=== PATIENT | female | born 1985 | race Caucasian/White ===

== ENCOUNTER 2018-03-30 14:56 | Inpatient (IN) | payer OTHER ==
[~2018-03-30] VITALS: Ht 162.6 cm; Wt 99.3 kg
[~2018-03-30 14:56] MED LIST: ALPR1TAB3 PO; BUPR150T3 PO; BUSP10TA PO; CYCL10TA PO; DETROL PO; ESTR1TAB PO; IBUP-1022 PO; KLON0.5T PO; LABE10TAB PO; LAMO25TA4 PO; LATU1TAB PO; LISI10TA4 PO; LORA-243 PO; NAPR-885 PO; NAPR375T PO; NEUR100C PO; PRIL20CA9 PO; ZOLP10TA2 PO; ZYRT10CA5 PO; [UNRECOGNIZED DRUG - OTHER] PO; flexeril PO
[2018-03-30 15:32] LABS: HEMATOCRIT 45.6 % (36.0-47.0); HEMOGLOBIN 15.2 g/dl (12.0-15.5); MEAN CORPUSCULAR HEMOGLOBIN 30.5 pg (27.0-33.0); MEAN CORPUSCULAR HGB CONC 33.3 g/dl (32.0-36.5); MEAN CORPUSCULAR VOLUME 91.6 fl (80.0-96.0); PLATELET COUNT, AUTOMATED 328 10^3/uL (150-450); RED BLOOD COUNT 4.98 10^6/uL (4.00-5.40); WHITE BLOOD COUNT 13.2 10^3/uL (4.0-10.0)
[2018-03-30 15:47] LABS: AMPHETAMINES LEVEL URINE NEGATIVE (NEGATIVE); BARBITURATES URINE NEGATIVE (NEGATIVE); BENZODIAZEPINES URINE NEGATIVE (NEGATIVE); CANNABINOIDS URINE POSITIVE (NEGATIVE); COCAINE METABOLITE URINE NEGATIVE (NEGATIVE); METHADONE URINE NEGATIVE (NEGATIVE); OPIATES URINE NEGATIVE (NEGATIVE); PHENCYCLIDINE URINE NEGATIVE (NEGATIVE)
[2018-03-30 16:14] LABS: ACETAMINOPHEN LEVEL < 2.0 UG/ML (10.0-30.0); ALBUMIN 4.7 GM/DL (3.2-5.2); ALT/SGPT 18 U/L (12-78); BILIRUBIN,DIRECT 0.2 MG/DL (0.0-0.2); BILIRUBIN,TOTAL 0.5 MG/DL (0.2-1.0); BLOOD UREA NITROGEN 7 MG/DL (7-18); CALCIUM LEVEL 9.5 MG/DL (8.5-10.1); CARBON DIOXIDE LEVEL 24 MEQ/L (21-32); CHLORIDE LEVEL 107 MEQ/L (98-107); CREATININE FOR GFR 0.86 MG/DL (0.55-1.30); ETHYL ALCOHOL (ETHANOL) < 0.003 % (0.000-0.010); GLOMERULAR FILTRATION RATE > 60.0 (>60); GLUCOSE, FASTING 115 MG/DL (70-100); POTASSIUM SERUM 4.1 MEQ/L (3.5-5.1); SALICYLATE LEVEL 4.3 MG/DL (5.0-30.0); SODIUM LEVEL 139 MEQ/L (136-145); THYROID STIMULATING HORMONE 0.804 uIU/ML (0.358-3.740); TOTAL PROTEIN 7.9 GM/DL (6.4-8.2)
[2018-03-30] MEDS ORDERED: ACETAMINOPHEN TAB 650MG DOSE (2X325MG) PO ONE (16:15)
[2018-03-30] MEDS ORDERED: LABETALOL 100 MG TAB PO ONE (16:45)
[2018-03-30 16:47] LABS: HCG, SERUM QUALITATIVE NEGATIVE (NEGATIVE)
--- NOTE | 2018-03-30 17:19 | REP ---
CHEST PA AND LATERAL: 03/30/2018. Clinical history: Fever. Findings: No prior study. The two-view show the lungs well inflated. CP angles are sharply defined. There is no effusion, lateral pleural thickening, apical scarring or any acute infiltrate. Heart, mediastinal and hilar contours normal. Aorta and airway intact. Bony thorax unremarkable. No free air under the diaphragm. Surgical clips in the upper abdomen seen on the lateral view. Impression: 1. No infiltrate, effusion, cardiomegaly or other significant finding. Electronically Signed by Deric Donis MD 03/30/2018 05:56 P
[2018-03-30 17:45] LABS: INFLUENZA A AMPLIFICATION NEGATIVE (NEGATIVE); INFLUENZA B AMPLIFICATION NEGATIVE (NEGATIVE)
[2018-03-30] MEDS ORDERED: LORazepam 2 MG TAB PO ONE (18:30)
[2018-03-30] MEDS ORDERED: CITA-229 PO (19:49)
[2018-03-30] MEDS ORDERED: ALPR1TAB3 PO (19:49)
[2018-03-30] MEDS ORDERED: VYVA70CA3 PO (19:49)
[2018-03-30] MEDS ORDERED: PANT40TA3 PO (19:49)
[2018-03-30] MEDS ORDERED: TEMA30CA PO (19:49)
[2018-03-30] MEDS ORDERED: SERT25TA PO (19:51)
[2018-03-30] MEDS ORDERED: LAMO25CH6 PO (19:51)
[2018-03-30] MEDS ORDERED: DOXE50CA PO (19:51)
[2018-03-30] MEDS ORDERED: VENTAER INH (19:51)
[2018-03-30] MEDS ORDERED: PHENobarbital 30 MG TAB PO ONE (20:00)
[2018-03-30] MEDS ORDERED: IBUPROFEN 800 MG TAB PO ONE (20:00)
[2018-03-30] MEDS ORDERED: LAMO25TA4 PO (20:08)
[2018-03-30] MEDS ORDERED: TIZA4CAP6 PO (20:08)
[2018-03-30] MEDS ORDERED: FLUO20CA8 PO (20:08)
[2018-03-30] MEDS ORDERED: VRAY6CAP PO (20:08)
[2018-03-30] MEDS ORDERED: ESTR2TAB2 PO (20:08)
[2018-03-30] MEDS ORDERED: VRAY3CAP PO (20:09)
[2018-03-30] MEDS ORDERED: PATIENT COMMENTS (20:12)
[2018-03-30] MEDS ORDERED: MAALOX 30 ML SUSP *UDC PO PRN (21:45)
[2018-03-30] MEDS ORDERED: traZODone 50 MG TAB PO PRN (21:45)
[2018-03-30] MEDS ORDERED: MOM 30ML SUSPENSION UDC PO PRN (21:45)
[2018-03-30] MEDS ORDERED: chlorproMAZINE INJ 50MG/2ML AMP (J3230) IM ONE (22:30)
[2018-03-31 02:00] VITALS: BP 136/88
[2018-03-31] MEDS ORDERED: OLANZapine ORAL DISINTEGRATING TAB 5MG PO PRN (03:45)
[2018-03-31] MEDS ORDERED: ALBUTEROL 90 MCG/ACT 8GM HFA INHALER INH PRN (03:45)
[2018-03-31 06:00] VITALS: BP 107/53
[2018-03-31] MEDS: PANTOPRAZOLE 40MG TAB (PROTONIX) PO SCH ×2 (09:34→21:58)
[2018-03-31] MEDS: CETIRIZINE (ZyrTEC) 10 MG TAB PO SCH (09:34)
[2018-03-31] MEDS: ACETAMINOPHEN TAB 650MG DOSE (2X325MG) PO PRN (09:41)
[2018-03-31] MEDS: ESTRADIOL 1 MG TAB PO SCH (14:20)
[2018-03-31 18:00] VITALS: BP 121/64
--- NOTE | 2018-03-31 19:07 | NUR ---
Admit note dictated
[2018-03-31] MEDS ORDERED: ARIPiprazole 2 MG TAB PO SCH (21:00)
[2018-03-31] MEDS: LABETALOL 100 MG TAB PO SCH (21:59)
[2018-04-01 06:00] VITALS: BP 109/54
[2018-04-01] MEDS: CETIRIZINE (ZyrTEC) 10 MG TAB PO SCH (09:04)
[2018-04-01] MEDS: ESTRADIOL 1 MG TAB PO SCH (09:04)
[2018-04-01] MEDS: PANTOPRAZOLE 40MG TAB (PROTONIX) PO SCH ×2 (09:04→21:28)
[2018-04-01] MEDS: ACETAMINOPHEN TAB 650MG DOSE (2X325MG) PO PRN (09:04)
[2018-04-01 18:00] VITALS: BP 106/60
[2018-04-01 21:28] VITALS: BP 127/80
[2018-04-01] MEDS: LABETALOL 100 MG TAB PO SCH (21:28)
--- NOTE | 2018-04-01 21:32 | MHHPE ---
DATE OF ADMISSION: 03/30/2018 CHIEF COMPLAINT: Feels okay. SUBJECTIVE: She is 32 years old. She lives next to her parents, who have temporary custody of her three children. She had a child who 3 years ago; he was 6 at the time, and the child of a seizure. Patient says things changed after that. She has had inpatient hospitalizations; most recent one was at [facility] in [place]. Says was there last week. [facility]) in [place]. She says she sees a therapist as well as a psychiatrist. The patient was last admitted here about 2 years ago, December 2015, seen by Dr. Munoz, whose discharge summary is reviewed. She was thought to have depression, was suicidal, and also was experiencing grief regarding the loss of her son, which was in June 2015. The patient says that over the last month, she lived somewhat like a "hermit;" this is her description. Says tended to live in her room, would not get out, would only get out for food and water, would make something herself and then get back into the room. Says that went on from around [place] onwards. Says she was thinking of her son, whose birthday is in February. Says began feeling better; at some point, she went to [place], flew there, and drove off with a friend, went to [place] on the way, and returned. Says that went well and that she was about a week away from the area. Says had lately been doing okay and that, in fact, she had been seeing her parents regularly and a couple of friends, one of whom is Randal, whom she is very close to, and Seb, who sometimes stay at her place, per the patient. She says she was a bit frustrated a couple of days ago and that there had been some disagreement. She did not go into details, but then she texted Randal that she felt frustrated and that she wished to join her son if her wishes did not turn laster. The emergency room (ER) record says the wish was to move to [place]. She says she had expected Randal to call her back and ask about her; he apparently did not. He informed her parents. The following day, which was yesterday, she went to see her outpatient clinician. Says things were okay, was asked many questions. Says that went well and that her clinician was restarting Vraylar. She had been on it in the recent past but not taken it for about a month. She acknowledges she did not inform the clinician that she had sent the text to her friend the previous day. Says in the evening, had gone to her parents' place, picked up the keys to her place, was at her place. Says someone came to distract her and then the police came. Says she was not pleased with that but cooperated in coming to the emergency room. She feels that her friend and parents overreacted. Initially, she had denied that she had sent a message, but the patient and family services, via the police, were able to (cut off); and when told that she was going to be admitted to the hospital, she became very agitated and was restrained, including chemically. She says she did that as she was upset and does not think that she was treated well. Says there are times, she acknowledges, that if she is treated not well, will behave in a "psychotic" manner; these are her words. Says has no intentions of taking her life and that she did not have any either. She says the outpatient clinician has been making many changes to her medicines, which has been evident in the rather confusing medication list; we tried to reconcile the medicines with the pharmacy outpatient. She says there are periods where she feels quite happy, possibly euphoric, that last for about 4 days or so, usually followed by a crash. Says is tired despite feeling good. The need for sleep diminishes, but denies any spending sprees or other symptoms of hypomania. PAST PSYCHIATRIC HISTORY: As indicated above, has had inpatient hospitalizations, most recently at [facility] in [place]. Denies any drug use or any alcohol use. It should be noted urine toxicology is positive for cannabinoids. SOCIAL HISTORY: Please refer to previous summaries. She had a child who just over 2 years ago secondary to a seizure. She has three other children. Says generally gets along with her parents, who live next door. MENTAL STATUS EXAMINATION: She is neat. She is cooperative. She is seen in the presence of staff. She is coherent. Speech spontaneous, goal directed. Affect reactive, broad. Denies any suicidal thoughts or intents. No homicidal ideas or intents. No evidence of any psychosis. Cognition grossly intact. Judgment and insight are compromised. Intellect is average. VITAL SIGNS: Blood pressure 107/53, pulse 74, temperature 97.8. INVESTIGATIONS: Shows urine toxicology positive for cannabinoids. Basic metabolic panel essentially within normal limits except for fasting glucose 115. Complete blood count essentially within normal limits except for white cell count of 13.2. ASSESSMENT: 1. Other specified bipolar and related disorders. 2. Rule out bipolar type 2 disorder. 3. Rule out major depressive disorder, recurrent. 4. Son's 2 years ago. 5. Limited social supports. Has had depressive periods; possibly has had periods indicative of hypomania, though unclear if she meets full criteria for it. Has had many medication changes, and this may impact the confusion further. PLAN: She is admitted to the inpatient psychiatry unit, placed on relevant precautions. I would suggest obtaining collateral information, including from her inpatient stay at [facility], to help with diagnosis. Meanwhile, we will look at starting her on a mood stabilizer, such as Abilify, to help with mood stability and avoid using an antidepressant. I am hesitant prescribing her Vyvanse, which she says she takes regularly, given mood fluctuations. She will receive a medicine consult if indicated. She will be asked to participate in activities in the unit as tolerated. She will be discharged with followup once she is stable. I would anticipate a 5-7 day stay. My assessment and recommendations are discussed with her at length. The assessment took 45 minutes. Edited: alberto 04/04/2018 2300
[2018-04-01] MEDS: CYCLOBENZAPRINE 10 MG TAB PO SCH (22:23)
[2018-04-02 06:24] VITALS: BP 128/65
[2018-04-02] MEDS: FLUCONAZOLE 50MG TABLET PO SCH (09:12)
[2018-04-02] MEDS: ESTRADIOL 1 MG TAB PO SCH (09:12)
[2018-04-02] MEDS: CETIRIZINE (ZyrTEC) 10 MG TAB PO SCH (09:12)
[2018-04-02] MEDS: PANTOPRAZOLE 40MG TAB (PROTONIX) PO SCH ×2 (09:12→21:00)
--- NOTE | 2018-04-02 11:41 | MHIPNPDOC ---
[facility] Progress Note Progress Note DATE OF SERVICE: 04/02/18 HISTORY: She is 32 years old. She lives next to her parents, who have temporary custody of her three children. She had a child who 3 years ago, he was 6 at the time, and the child of a seizure. The patient says that things changed after that. She had inpatient hospitalizations, most recent one was at [facility] in [place], says was there last week, is seen at [facility] ([facility]) in [place]. She says that she sees a therapist, as well as a psychiatrist. The patient was last admitted here about 2 years ago, December 2015, was seen by Dr. Munoz, whose discharge summary is reviewed, she was thought to have depression, was suicidal, and also was experiencing grief regarding the loss of her son, which was in June 2015. The patient says that over the last month she lived somewhat like a "hermit," this is her description. Says tended to live in her room, would not get out, would only get out for food and water, would make something herself and then get back into her room. Says this went on from around [place] onwards, says she was thinking of her son, whose birthday was in February. Says began feeling better and at some point she went to [place], flew there, and drove off with a friend to [place] on the way and returned. Said that went well and she was about a week away from the area. Says had lately been doing okay and that in fact she had been seeing her parents regularly and a couple of friends, one of whom is Randal, whom she is very close to, and Seb, who sometimes stay at her place, per the patient. She says that she was a bit frustrated a couple of days ago and that there had been some disagreement. She did not go into details, and then she texted Randal that she felt frustrated and that she wished to join her son if her wishes did not garment turner. The emergency room record says the wish to move to [place]. She says that she had expected Randal to call her back and ask about her, he apparently did not, he informed her parents. The following day, which was yesterday, she went to see her outpatient clinician, says things were okay, was asked many questions. Says that went well, and that her clinician was restarting Vraylar, she had been on it in the recent past but was not taking it for about a month. She acknowledges that she did not inform the clinician that she had sent the text to her friend the previous day. Says in the evening had gone to her parents' place, picked up the keys to her place, was at her place, says someone came to distract her and then the police came. She says that she was not pleased with that but cooperated in coming to the emergency room. She feels that her friend and parents overreacted. Initially, she had denied that she had sent a message, but patient and family services ([facility]), via the police , and when told that she was going to be admitted to the hospital she became very agitated and was restrained, including chemically. She says that she did that as she was upset, does not think that she was treated well. Says that there are times, she acknowledges, that if she is treated not well that she will behave in a "psychotic manner," these are her words. Says had no intentions of taking her life, and that she did not have any either. She says that the outpatient clinician has been making many changes to her medicines, which has been evident in the rather confusing medication list, we tried to reconcile the medications with the pharmacy outpatient. She says that there are periods where she feels quite happy, possibly euphoric, it lasts for about 4 days or so, followed by a crash. Says is tired despite feeling good. The need for sleep diminishes, but denies any spending sprees or other symptoms of hypomania. VITAL SIGNS: See below. NEW TEST RESULTS: See below. CURRENT MEDICATIONS: See below. MENTAL STATUS EXAMINATION: She is neat. She is cooperative. She is seen in office. She is coherent. Speech is spontaneous and goal directed. Affect is slightly irritable and low range. Endorses anxiety occasionally due to claustrophobia and tiny hanks. Denies any suicidal thoughts or intents. No homicidal ideas or intents. No evidence of any psychosis. Cognition is grossly intact. Judgment and insight are fair. Intellect is average. DIAGNOSES: 1. Other specified bipolar and related disorders. 2. Rule out bipolar type 2 disorder. 3. Rule out major depressive disorder, recurrent. ASSESSMENT:Pt seen and states she's doing "ok." States she's here b/c her family took her text message that "she wanted to be with her son." as a suicidal threat which she denies stating she really ment that she just wanted some one to talk to. States "no one could pay may enough money to kill myself b/c I'd just being punishing 3 little people" her kids. States she's talking to staff as she won't go to groups b/c she's claustrophobic and hanks is too small. States nursing staff is supportive and available to talk to. Pt states she's tolerating her medications well and feels they're beneficial. Hopeful to go home soon. She denies depression, anxiety, insomnia, SI/HI, hallucinations, delusions. Pt feels safe here. MANAGEMENT PLAN: continue current plan. Medications: Aripiprazole 5 mg QHS ZyPREXA ZYDIS 5 mg Q4HP PRN PO ANXIETY/AGITATION Trazodone 50 mg QHSP PRN PO INSOMNIA TIME SPENT: 30 minutes. Vital Signs Vital Signs Date Time Temp Pulse Resp B/P (MAP) Pulse Ox O2 Delivery O2 Flow Rate FiO2 04/02/18 06:24 97.0 74 14 128/65 (86) 03/31/18 01:51 99 Room Air Current Medications Current Medications Acetaminophen (Tylenol Tab) 650 mg Q6HP PRN PO HEADACHE or DISCOMFORT Last administered on 04/01/18at 09:04; Start 03/30/18 at 21:45 Al Hydrox/Mg Hydrox/Simethicone (Mylanta) 30 ml Q4HP PRN PO HEART BURN/INDIGESTION Last administered on 03/31/18at 16:20; Start 03/30/18 at 21:45 Albuterol Sulfate (Proventil, Ventolin Hfa) 2 puff Q4HP PRN INH SHORTNESS OF BREATH; Start 03/31/18 at 03:45 Aripiprazole (AbiLIFY) 2 mg QHS PO Last administered on 03/31/18at 21:59; Start 03/31/18 at 21:00; Stop 04/01/18 at 13:08; Status DC Aripiprazole (AbiLIFY) 5 mg QHS PO Last administered on 04/01/18 21:28; Start 04/01/18 at 21:00 Cetirizine HCl (ZyrTEC) 10 mg DAILY PO Last administered on 04/02/18 09:12; Start 03/31/18 at 09:00 Cyclobenzaprine HCl (Flexeril) 10 mg QHS PO Last administered on 04/01/18 22:23; Start 04/01/18 at 21:00 Estradiol (Estrace) 2 mg DAILY PO Last administered on 04/02/18 09:12; Start 03/31/18 at 09:00 Fluconazole (Diflucan) 150 mg DAILY PO Last administered on 04/02/18 09:12; Start 04/02/18 at 09:00; Stop 04/03/18 at 09:01 Home Med (Med Rec Complete!) ASDIRECTED XX ; Start 03/30/18 at 20:15; Stop 03/30/18 at 20:15; Status DC Labetalol HCl (Normodyne, Trandate) 100 mg QHS PO Last administered on 21:28; Start 03/31/18 at 21:00 Magnesium Hydroxide (Milk Of Magnesia) 30 ml DAILYPRN PRN PO CONSTIPATION; Start 03/30/18 at 21:45 Olanzapine (ZyPREXA ZYDIS) 5 mg Q4HP PRN PO ANXIETY/AGITATION Last administered on 04/01/18 13:05; Start 03/31/18 at 03:45 Pantoprazole Sodium (Protonix) 40 mg BID PO Last administered on 04/02/18 09:12; Start 03/31/18 at 09:00 Trazodone HCl (Desyrel) 50 mg QHSP PRN PO INSOMNIA Last administered on 04/01/18 21:28; Start 03/30/18 at 21:45 Allergies Coded Allergies: Cefaclor (Verified Allergy, Unknown, 08/26/14) Sulfa Antibiotics (Verified Allergy, Unknown, 08/26/14) TAD MICHAEL DO Apr 02, 2018 11:41 am
--- NOTE | 2018-04-02 17:06 | MHIPN ---
DATE: 04/01/2018 CHIEF COMPLAINT: She says she feels okay. SUBJECTIVE: She is seen for followup. She says she had a good night's sleep. She has also spoken with Randal, says that went well, and they are hoping to be "best friends" again. She has been eating well. MENTAL STATUS EXAMINATION: Neat, cooperative. No agitation. Coherent. Affect is reactive, fairly broad, though at times a bit restricted. Denies any thoughts of harming herself or anyone else. No current evidence of psychosis. Cognition grossly intact. Judgment and insight, I think remain compromised. ASSESSMENT: 1. Other specified depressive disorder. 2. Consider bipolar disorder. PLAN: I would suggest increasing the Abilify to 5 mg at night. I would encourage her participating in activities on the unit. I would suggest obtaining collateral information. She will be seeing the assigned psychiatrist, as well as the treatment team, tomorrow. VITAL SIGNS: These are as listed. Blood pressure 109/54, pulse 73, temperature 97.8.
[2018-04-02 18:00] VITALS: BP 132/82
[2018-04-02] MEDS: CYCLOBENZAPRINE 10 MG TAB PO SCH (21:00)
[2018-04-02] MEDS: LABETALOL 100 MG TAB PO SCH (21:00)
[2018-04-03 06:47] VITALS: BP 139/77
--- NOTE | 2018-04-03 08:00 | HPE ---
DATE OF ADMISSION: 03/30/2018 HISTORY OF PRESENT ILLNESS: Please refer to psychiatric history and evaluation for further details on this admission. This examination and history is intended for medical issues, which may need treatment, followup or consult on this 32-year-old female. ALLERGIES: CECLOR and SULFA; both cause hives and difficulty breathing. SOCIAL HISTORY: She is . She rarely drinks alcohol. She smokes one pack of cigarettes daily. Recreational drug use: Marijuana daily. PAST MEDICAL HISTORY: 1. Hypertension. 2. Chronic back pain. 3. Chronic neck pain. 4. Left shoulder pain. 5. Gastroesophageal reflux disease (GERD). 6. Asthma. 7. Bipolar disorder. 8. Anxiety. PAST SURGICAL HISTORY: 1. section () times two. 2. Tubal ligation. 3. Cholecystectomy. 4. Endometrial ablation. 5. Myringotomy. 6. Left shoulder biceps repair. 7. Subsequent several years later "clean up" of the left shoulder joint. LABORATORY STUDIES: White count was 13.2, hemoglobin 15.2, hematocrit 45.6, platelets 328. Electrolytes were normal. BUN was 7, creatinine was 0.86. Nonfasting glucose 115. Urine was positive for cannabinoids. Influenza A and B was negative. REVIEW OF SYSTEMS: No complaint of headache. No blurred or double vision. She has had fever and chills. No tinnitus. No hoarseness. No difficulty swallowing. No lightheadedness. No vertigo. CARDIOVASCULAR: No complaints of chest pain, shortness of breath, or edema. RESPIRATORY: No current cough, no sputum production. No hemoptysis. No orthopnea. No wheeze. GASTROINTESTINAL: No nausea. No vomiting. No diarrhea. No hematochezia. No melena. No complaints of abdominal pain. GENITOURINARY: No hematuria or dysuria. Complaints of some vaginal itching and white discharge. MUSCULOSKELETAL: Complains of chronic spasm of her back and neck. No joint redness or swelling. ENDOCRINE: No polyuria, polydipsia, or polyphagia. HEMATOLOGICAL: No history of anemia. NEUROLOGICAL: No history of seizures. No paraesthesia or paralysis. PSYCHOLOGICAL: See psychiatric history of present illness. HOME MEDICATIONS: - albuterol two puffs by mouth every 4-6 hours as needed for shortness of breath or wheeze - alprazolam 1 mg by mouth twice a day - Cetirizine 10 mg by mouth daily - Celexa 10 mg by mouth daily - cyclobenzaprine 10 mg by mouth twice a day as needed muscle spasms - doxepin 50 mg by mouth twice a day - estradiol 2 mg by mouth daily - fluoxetine 20 mg by mouth daily - labetalol 100 mg by mouth at bedtime - lamotrigine 25 mg by mouth four times a day - naproxen 500 mg by mouth daily as needed - pantoprazole 40 mg by mouth twice a day - sertraline 25 mg by mouth daily - temazepam 30 mg by mouth daily - Vraylar 3 mg by mouth daily, 6 mg by mouth daily - Vyvanse 70 mg by mouth daily PHYSICAL EXAMINATION: 32-year-old cooperative female in no acute distress. VITAL SIGNS: Height: 64 inches. Weight 98.6 kg. Body mass index (BMI): 37.3. Blood pressure 106/60, pulse 76, respirations 16, temperature 98. Patient is alert and oriented times three. Pupils equal and react to light. Extraocular muscles (EOMs) intact. Cornea and sclerae clear. Conjunctiva is normal. No facial asymmetry. Pharynx, tongue and gums pink and moist. Tongue is midline. Neck is supple without lymphadenopathy. No thyromegaly. No goiter. Carotids 2+ without bruits. CHEST: Clear to auscultation without wheeze or retraction. HEART: Is regular. ABDOMEN: Benign. Bowel sounds positive. GENITOURINARY ()/RECTAL: Not done. EXTREMITIES: Show equal strength, full range of motion. No cyanosis, clubbing, or edema. Peripheral pulses equal and palpable bilaterally. SKIN: Is warm and dry. IMPRESSION/PLAN: 1. Psychiatric plan per psychiatry. 2. Vaginal yeast infection: Diflucan one by mouth daily for 2 days. Patient instructed to let nursing know if this does not improve. 3. Chronic back and neck pain, left shoulder discomfort. Continue Flexeril 10 mg by mouth will continue nightly, chronic back and neck spasms, left shoulder discomfort. 4. Hypertension: Continue labetalol 100 mg by mouth at bedtime. 5. Gastroesophageal reflux disease (GERD). Clinically stable. Continue Protonix 40 mg by mouth daily. 6. History asthma. Albuterol rescue inhaler is ordered if needed, two puffs by mouth every 4 hours as needed shortness of breath or wheeze.
[2018-04-03] MEDS: FLUCONAZOLE 50MG TABLET PO SCH (08:43)
[2018-04-03] MEDS: PANTOPRAZOLE 40MG TAB (PROTONIX) PO SCH (08:43)
[2018-04-03] MEDS: CETIRIZINE (ZyrTEC) 10 MG TAB PO SCH (08:43)
[2018-04-03] MEDS: ESTRADIOL 1 MG TAB PO SCH (08:43)
--- NOTE | 2018-04-03 08:43 | MHDSPDOC ---
[facility] Discharge Summary Discharge Summary DATE OF ADMISSION: Mar 30, 2018 at 9:42 pm DATE OF DISCHARGE: Apr 03, 2018 DISCHARGE DIAGNOSES: 1. Other specified bipolar and related disorders. 2. Rule out bipolar type 2 disorder. 3. Rule out major depressive disorder, recurrent. REASON FOR ADMISSION: She is 32 years old. She lives next to her parents, who have temporary custody of her three children. She had a child who 3 years ago, he was 6 at the time, and the child of a seizure. The patient says that things changed after that. She had inpatient hospitalizations, most recent one was at [facility] in [place], says was there last week, is [facility]) in [place]. She says that she sees a therapist, as well as a psychiatrist. The patient was last admitted here about 2 years ago, December 2015, was seen by Dr. Munoz, whose discharge summary is reviewed, she was thought to have depression, was suicidal, and also was experiencing grief regarding the loss of her son, which was in June 2015. The patient says that over the last month she lived somewhat like a "hermit," this is her description. Says tended to live in her room, would not get out, would only get out for food and water, would make something herself and then get back into her room. Says this went on from around Arielle onwards, says she was thinking of her son, whose birthday was in February. Says began feeling better and at some point she went to [place], flew there, and drove off with a friend to [place] on the way and returned. Said that went well and she was about a week away from the area. Says had lately been doing okay and that in fact she had been seeing her parents regularly and a couple of friends, one of whom is Randal, whom she is very close to, and Seb, who sometimes stay at her place, per the patient. She says that she was a bit frustrated a couple of days ago and that there had been some disagreement. She did not go into details, and then she texted Randal that she felt frustrated and that she wished to join her son if her wishes did not route returner. The emergency room record says the wish to move to [place]. She says that she had expected Randal to call her back and ask about her, he apparently did not, he informed her parents. The following day, which was yesterday, she went to see her outpatient clinician, says things were okay, was asked many questions. Says that went well, and that her clinician was restarting Vraylar, she had been on it in the recent past but was not taking it for about a month. She acknowledges that she did not inform the clinician that she had sent the text to her friend the previous day. Says in the evening had gone to her parents' place, picked up the keys to her place, was at her place, says someone came to distract her and then the police came. She says that she was not pleased with that but cooperated in coming to the emergency room. She feels that her friend and parents overreacted. Initially, she had denied that she had sent a message, but [facility] services ([facility]), via the police , and when told that she was going to be admitted to the hospital she became very agitated and was restrained, including chemically. She says that she did that as she was upset, does not think that she was treated well. Says that there are times, she acknowledges, that if she is treated not well that she will behave in a "psychotic manner," these are her words. Says had no intentions of taking her life, and that she did not have any either. She says that the outpatient clinician has been making many changes to her medicines, which has been evident in the rather confusing medication list, we tried to reconcile the medications with the pharmacy outpatient. She says that there are periods where she feels quite happy, possibly euphoric, it lasts for about 4 days or so, followed by a crash. Says is tired despite feeling good. The need for sleep diminishes, but denies any spending sprees or other symptoms of hypomania. CONSULTANTS INVOLVED: none TREATMENT AND PROGRESS ON THE UNIT : Pt was admitted to [facility], seen for psychiatric assessment and started on abilify 5mg daily for bipolar disorder. She was provided zyprexa zydis mg q6hr prn anxiety/agitation and doxepin 10mg qhs prn insomnia. Pt found her medications beneficial and tolerated them well. She talked to staff during her stay due to claustrophobia walking down hanks to groups where construction as made it smaller. She felt that was beneficial for her. Her symptoms improved with treatment. On day of discharge she denied depression, anxiety, insomnia, SI/HI, hallucinations, delusions. She was discharged home after family meeting with her parents with follow-up at [facility]. She felt safe for discharge DISCHARGE ASSESSMENT: Pt seen and states she's doing "good" and looking forward to going home and being with her kids. States her abilify is beneficial and she's tolerating it well. [facility] nursing staff is supportive and available to talk to as refuses to go to groups due to claustrophobia walking down hanks to groups where construction as made it smaller. Pt states she's tolerating her medications well and feels they're beneficial. She denies depression, anxiety, insomnia, SI/HI, hallucinations, delusions. Pt feels safe to be discharged home today with her parents. MENTAL STATUS EXAMINATION ON DISCHARGE: She is neat. She is cooperative. She is seen in office. She is coherent. Speech is spontaneous and goal directed. Affect is euthymic and bright. Endorses greatly improved anxiety. Endorses claustrophobia walking down tiny hanks that is not new.Denies any suicidal thoughts or intents. No homicidal ideas or intents. No evidence of any psychosis. Cognition is grossly intact. Judgment and insight are good. Intellect is average. MEDICATIONS ON DISCHARGE: Aripiprazole 5 mg QHS ZyPREXA ZYDIS 5 mg Q4HP PRN PO ANXIETY/AGITATION Doxepin 10 mg QHSP PRN PO INSOMNIA PLAN/FOLLOWUP ARRANGEMENTS: D/c home with follow-up at [facility]. The amount of time spent in the coordination of care for this patient was approximately 30 minutes. Vital Signs/I&Os Vital Signs Date Time Temp Pulse Resp B/P (MAP) Pulse Ox O2 Delivery O2 Flow Rate FiO2 04/03/18 06:47 97.3 73 16 139/77 (97) 03/31/18 01:51 99 Room Air Laboratory Data Microbiology Microbiology 03/30/18 Urine Culture - Final, Complete Medications Scheduled (Tizanidine Hydrochloride) 4 Mg Cap, 4 MG PO BID, (Reported) Aripiprazole (Aripiprazole) 5 Mg Tab, 5 MG PO QHS for bipolar d/o, #10 Cetirizine HCl (Zyrtec Allergy) 10 Mg Tab, 10 MG PO DAILY for Allergies, (Reported) Estradiol (Estradiol) 2 Mg Tab, 2 MG PO DAILY, (Reported) Labetalol HCl (Labetalol HCl) 100 Mg Tab, 100 MG PO QHS for hypertension, (Reported) Pantoprazole Sodium (Pantoprazole Sodium) 40 Mg Tab, 40 MG PO BID, (Reported) Scheduled PRN Albuterol Sulfate (Ventolin Hfa) 108 Mcg/Act Aer, 2 PUFF INH Q4-6HP PRN for wheezing, (Reported) Cyclobenzaprine HCl (Cyclobenzaprine HCl) 10 Mg Tab, 10 MG PO BID PRN for MUSCLE SPASMS, (Reported) Doxepin HCl (Doxepin HCl) 10 Mg Cap, 10 MG PO QPM PRN for INSOMNIA, #10 Naproxen (Naproxen) 500 Mg Tab, 500 MG PO DAILY PRN for PAIN, (Reported) Miscellaneous Medications [Patient Comments] , (Reported) PATIENT STATES SHE DOESN'T KNOW THE NAMES OF HER MEDICATIONS, SHE SAYS SHE TAKES HER MEDICATIONS ORDERED. POOR HISTORIAN. MEDICATIONS VERIFIED FILLED, AVAILABLE AND PICKED UP AT [facility] IN [place]. Allergies Coded Allergies: Cefaclor (Verified Allergy, Unknown, 08/26/14) Sulfa Antibiotics (Verified Allergy, Unknown, 08/26/14) TAD MICHAEL DO Apr 03, 2018 8:43 am
[2018-04-03] MEDS ORDERED: TRAZO50TA PO (08:47)
[2018-04-03] MEDS ORDERED: ARIP5TA PO (08:47)
[2018-04-03] MEDS ORDERED: DOXE10CA PO (09:24)
== END 2018-04-03 10:15 | disposition home or self-care (01) | DRG 753 ==
LOC: M ED 14:56 → M ED INP 21:42 → M PSY 03-31 02:01
PROVIDERS: ADMIT Psychiatry & Neurology Psychiatry; ATTEND Psychiatry & Neurology Psychiatry
DX: F31.81 Bipolar II disorder (principal); I10 Essential (primary) hypertension; Z79.899 Other long term (current) drug therapy; Z88.2 Allergy status to sulfonamides; Z88.8 Allergy status to other drugs, medicaments and biological substances; J45.909 Unspecified asthma, uncomplicated; K21.9 Gastro-esophageal reflux disease without esophagitis; M54.5 Low back pain; M54.2 Cervicalgia; F41.9 Anxiety disorder, unspecified; F17.210 Nicotine dependence, cigarettes, uncomplicated; F12.90 Cannabis use, unspecified, uncomplicated; N76.0 Acute vaginitis

== ENCOUNTER 2024-04-21 16:43 | Inpatient (IN) | payer OTHER ==
[~2024-04-21] VITALS: Ht 162.6 cm; Wt 100.0 kg
[~2024-04-21 16:43] MED LIST changes: +ARIP1TAB6 PO; +BUPR150T12 PO; -BUPR150T3 PO; +CITA10TA6 PO; +CYCL-707 PO; -CYCL10TA PO; +DOXE10CA PO; +DOXE50CA PO; +ESTR2TAB3 PO; +FLUO-96 PO; -KLON0.5T PO; +KLON0.5T8 PO; +LABE100T6 PO; -LABE10TAB PO; +LAMO25CH6 PO; +LISI10TA22 PO; -LISI10TA4 PO; +PANT40TA29 PO; +PATIENT COMMENTS; +SERT25TA85 PO; +TEMA30CA PO; +TIZA4CAP3 PO; +TRAZ1TAB10 PO; +VENTAER INH; +VRAY3CAP PO; +VRAY6CAP PO; +VYVA70CA3 PO; +[UNRECOGNIZED DRUG - OTHER] PO; -[UNRECOGNIZED DRUG - OTHER] PO
[2024-04-21 17:30] LABS: HEMATOCRIT 45.3 % (36.0-47.0); HEMOGLOBIN 15.4 g/dl (12.0-15.5); MEAN CORPUSCULAR HEMOGLOBIN 30.6 pg (27.0-33.0); MEAN CORPUSCULAR VOLUME 89.9 fl (80.0-96.0); PLATELET COUNT, AUTOMATED 314 10^3/uL (150-450); RED BLOOD COUNT 5.04 10^6/uL (4.00-5.40); WHITE BLOOD COUNT 7.5 10^3/uL (4.0-10.0)
[2024-04-21 17:58] LABS: AMPHETAMINES LEVEL URINE NEGATIVE (NEGATIVE); BENZODIAZEPINES URINE NEGATIVE (NEGATIVE)
[2024-04-21 17:59] LABS: COCAINE METABOLITE URINE NEGATIVE (NEGATIVE); METHADONE URINE NEGATIVE (NEGATIVE); OPIATES URINE NEGATIVE (NEGATIVE); PHENCYCLIDINE URINE NEGATIVE (NEGATIVE)
[2024-04-21 18:00] LABS: ETHYL ALCOHOL (ETHANOL) < 0.003 % (0.000-0.010)
[2024-04-21 18:01] LABS: HCG, SERUM QUALITATIVE NEGATIVE (NEGATIVE)
[2024-04-21 18:02] LABS: ALBUMIN 4.3 G/DL (3.2-5.2); ALKALINE PHOSPHATASE 78 U/L (35-104); ALT/SGPT 19 U/L (7.0-40); AST/SGOT 15 U/L (<34); BILIRUBIN,DIRECT 0.1 MG/DL (<0.4); BILIRUBIN,TOTAL 0.5 MG/DL (0.3-1.2); BLOOD UREA NITROGEN 9 MG/DL (9-23); CALCIUM LEVEL 10.4 MG/DL (8.5-10.1); CARBON DIOXIDE LEVEL 26 MMOL/L (20-31); CHLORIDE LEVEL 106 MMOL/L (98-107); CREATININE FOR GFR 0.76 MG/DL (0.55-1.30); GLOMERULAR FILTRATION RATE > 60.0 (>60); GLUCOSE, FASTING 98 MG/DL (60-100); POTASSIUM SERUM 4.2 MMOL/L (3.5-5.1); SALICYLATE LEVEL < 3.0 MG/DL (<30); SODIUM LEVEL 142 MMOL/L (136-145); TOTAL PROTEIN 7.6 G/DL (5.7-8.2)
[2024-04-21 18:03] LABS: BARBITURATES URINE POSITIVE (NEGATIVE); CANNABINOIDS URINE POSITIVE (NEGATIVE)
[2024-04-21 18:04] LABS: THYROID STIMULATING HORMONE 0.516 uIU/ML (0.55-4.78)
[2024-04-21] MEDS: ACETAMINOPHEN 325 MG TAB PO ONE (18:46)
[2024-04-21] MEDS: NICOTINE 21MG/24HR 1 EA TRANSDERMAL TD ONE (20:45)
[2024-04-21] MEDS ORDERED: IBUP-1114 PO (21:05)
[2024-04-21] MEDS ORDERED: QUET100T2 PO (21:05)
[2024-04-21] MEDS ORDERED: SUMA25TA3 PO (21:05)
[2024-04-21] MEDS ORDERED: FAMO40TA3 PO (21:05)
[2024-04-21] MEDS ORDERED: LOSA50TA28 PO (21:05)
[2024-04-21] MEDS ORDERED: ESTR625TA PO (21:05)
[2024-04-21] MEDS ORDERED: ESTR0.1C5 VG (21:05)
[2024-04-21] MEDS ORDERED: CETI-24 PO (21:05)
[2024-04-21] MEDS ORDERED: OLAN5ZYD PO (21:05)
[2024-04-21] MEDS ORDERED: AMIT10TA7 PO (21:05)
[2024-04-21] MEDS ORDERED: BUTA-198 PO (21:05)
[2024-04-21] MEDS ORDERED: HOME MED LIST COMPLETE! XX SCH (21:10)
[2024-04-21] MEDS ORDERED: ALBUTEROL 90 MCG/ACT 8GM HFA INHALER INH PRN (21:15)
[2024-04-21] MEDS ORDERED: ESTROGENS VAGINAL CREAM 30GM PV SCH (21:15)
[2024-04-21] MEDS ORDERED: IBUPROFEN 400MG TAB PO PRN (21:20)
[2024-04-21] MEDS ORDERED: CYCLOBENZAPRINE 10MG TABLET PO PRN (21:20)
[2024-04-21] MEDS: QUEtiapine FUMARATE 50MG TAB PO PRN (23:41)
[2024-04-21] MEDS: SUMAtriptan SUCCINATE 25MG TABLET PO PRN (23:41)
[2024-04-21] MEDS: PANTOPRAZOLE 40MG TAB (PROTONIX) PO SCH (23:41)
[2024-04-21] MEDS: AMITRIPTYLINE 10MG TABLET PO SCH (23:41)
[2024-04-21] MEDS: FAMOTIDINE 20 MG TAB PO SCH (23:41)
[2024-04-22] MEDS: LOSARTAN 50MG TABLET PO SCH (08:40)
[2024-04-22] MEDS ORDERED: OLANZapine ORAL DISINTEGRATING TAB 5MG PO PRN (09:00)
[2024-04-22] MEDS: NICOTINE 14 MG/24 HR TRANSDERMAL TD SCH (09:00)
[2024-04-22] MEDS ORDERED: FIORICET TAB PO PRN (15:25)
[2024-04-22] MEDS ORDERED: diphenhydrAMINE 25MG CAP PO PRN (15:25)
[2024-04-22] MEDS ORDERED: OLANZapine 5 MG TAB PO PRN (15:25)
[2024-04-22] MEDS ORDERED: ALBUTEROL 90 MCG/ACT 8GM HFA INHALER INH PRN (15:25)
[2024-04-22] MEDS ORDERED: traZODone 50 MG TAB PO PRN (15:25)
[2024-04-22] MEDS ORDERED: MOM 30ML SUSPENSION UDC PO PRN (15:25)
[2024-04-22] MEDS: LORazepam 1 MG TAB PO PRN (20:27)
[2024-04-22] MEDS: QUEtiapine FUMARATE 100 MG TAB PO PRN (20:33)
[2024-04-22] MEDS: ACETAMINOPHEN 325 MG TAB PO PRN (20:33)
[2024-04-22 20:45] VITALS: BP 149/86; TEMP 97.1; O2SAT 97
[2024-04-22] MEDS ORDERED: CETIRIZINE (ZyrTEC) 10 MG TAB PO SCH (21:00)
[2024-04-22] MEDS: CYCLOBENZAPRINE 10MG TABLET PO PRN (21:46)
[2024-04-22] MEDS: MAALOX 30 ML SUSP *UDC PO PRN (22:10)
[2024-04-22] MEDS: SUMAtriptan SUCCINATE 25MG TABLET PO PRN (23:11)
[2024-04-23 06:55] VITALS: BP 111/59; TEMP 96.8; O2SAT 98
[2024-04-23 08:08] VITALS: BP 132/88
[2024-04-23] MEDS: FAMOTIDINE 20 MG TAB PO SCH (08:17)
[2024-04-23] MEDS: LOSARTAN 50MG TABLET PO SCH (08:17)
[2024-04-23] MEDS: CETIRIZINE (ZyrTEC) 10 MG TAB PO SCH (08:17)
[2024-04-23] MEDS ORDERED: SUCR1TA PO (09:33)
[2024-04-23] MEDS: OLANZapine ORAL DISINTEGRATING TAB 5MG PO SCH (09:40)
[2024-04-23] MEDS: PANTOPRAZOLE 40MG TAB (PROTONIX) PO SCH (09:40)
[2024-04-23] MEDS: SUCRALFATE 1 GM TAB PO SCH (11:52)
[2024-04-23 15:33] VITALS: BP 129/75; TEMP 97.6; O2SAT 96
[2024-04-23] MEDS: AMITRIPTYLINE 10MG TABLET PO SCH (20:10)
[2024-04-24] MEDS: TRIAMCINOLONE ACET 0.1% OINTMENT 15GM TOP SCH (06:16)
[2024-04-24 06:42] VITALS: BP 131/87; TEMP 97; O2SAT 96
[2024-04-24 08:24] VITALS: BP 140/90
[2024-04-24 08:28] VITALS: BP 140/90
== END 2024-04-24 11:36 | disposition home or self-care (01) | DRG 753 ==
LOC: M ED 16:43 → M ED INP 04-22 15:23 → M PSY 04-22 20:11
PROVIDERS: ADMIT Internal Medicine; ATTEND Internal Medicine
DX: F31.81 Bipolar II disorder (principal); I10 Essential (primary) hypertension; R45.851 Suicidal ideations; F43.10 Post-traumatic stress disorder, unspecified; F41.9 Anxiety disorder, unspecified; F43.81 Prolonged grief disorder; Z88.2 Allergy status to sulfonamides; Z91.030 Bee allergy status; Z88.8 Allergy status to other drugs, medicaments and biological substances; Z79.899 Other long term (current) drug therapy; J45.909 Unspecified asthma, uncomplicated; K21.9 Gastro-esophageal reflux disease without esophagitis; G47.00 Insomnia, unspecified

== ENCOUNTER 2025-01-23 16:43 | Inpatient (IN) | payer MEDICAID, OTHER ==
[~2025-01-23] VITALS: Ht 162.6 cm; Wt 100.0 kg
[~2025-01-23 16:43] MED LIST changes: +AMIT10TA11 PO; +BUTA-198 PO; +CETI-24 PO; +ESTR0.1C5 VG; +ESTR625TA PO; +FAMO40TA3 PO; -IBUP-1022 PO; +IBUP-1114 PO; +IBUP600T42 PO; -LABE100T6 PO; +LABE100T91 PO; +LAMO-18 PO; -LAMO25TA4 PO; +LOSA50TA28 PO; +OLAN5ZYD PO; +QUET100T2 PO; +SUCR1TA PO; +SUMA25TA3 PO; +ZOLP10TA11 PO; -ZOLP10TA2 PO
[2025-01-23 17:52] LABS: PLATELET COUNT, AUTOMATED 288 10^3/uL (150-450)
[2025-01-23 18:11] LABS: AMPHETAMINES LEVEL URINE NEGATIVE (NEGATIVE); BENZODIAZEPINES URINE NEGATIVE (NEGATIVE); COCAINE METABOLITE URINE NEGATIVE (NEGATIVE); METHADONE URINE NEGATIVE (NEGATIVE); OPIATES URINE NEGATIVE (NEGATIVE); PHENCYCLIDINE URINE NEGATIVE (NEGATIVE)
[2025-01-23 18:12] LABS: BARBITURATES URINE POSITIVE (NEGATIVE); CANNABINOIDS URINE POSITIVE (NEGATIVE)
[2025-01-23 18:14] LABS: ETHYL ALCOHOL (ETHANOL) 0.005 % (0.000-0.010)
[2025-01-23 18:16] LABS: ALT/SGPT 16 U/L (7.0-40); AST/SGOT 19 U/L (<34); CALCIUM LEVEL 10.3 MG/DL (8.5-10.1); CARBON DIOXIDE LEVEL 25 MMOL/L (20-31); CHLORIDE LEVEL 105 MMOL/L (98-107); CREATININE FOR GFR 0.78 MG/DL (0.55-1.30); GLOMERULAR FILTRATION RATE > 90.0 (>58); POTASSIUM SERUM 3.4 MMOL/L (3.5-5.1); SALICYLATE LEVEL < 3.0 MG/DL (<30); SODIUM LEVEL 144 MMOL/L (136-145)
[2025-01-23] MEDS ORDERED: PREM0.6254 PO (19:32)
[2025-01-23] MEDS ORDERED: HOME MED LIST COMPLETE! XX SCH (19:35)
[2025-01-23] MEDS ORDERED: MOM 30 ML SUSPENSION UDC PO PRN (21:40)
[2025-01-23] MEDS ORDERED: ALBUTEROL 90 MCG/ACT 8 GM HFA INHALER INH PRN (21:40)
[2025-01-23] MEDS ORDERED: OLANZapine 5 MG TAB PO PRN (21:40)
[2025-01-23] MEDS ORDERED: traZODone 50 MG TAB PO PRN (21:40)
[2025-01-23] MEDS ORDERED: CYCLOBENZAPRINE 10 MG TABLET PO PRN (21:40)
[2025-01-23] MEDS ORDERED: MAALOX 30 ML SUSP *UDC PO PRN (21:40)
[2025-01-24] MEDS: AMITRIPTYLINE 10 MG TABLET PO SCH (00:28)
[2025-01-24 06:04] VITALS: BP 126/82; TEMP 97.3; O2SAT 99
[2025-01-24] MEDS: CETIRIZINE 10 MG TAB PO SCH (08:47)
[2025-01-24] MEDS: SUCRALFATE 1 GM TAB PO SCH (08:47)
[2025-01-24] MEDS: PANTOPRAZOLE 40MG TAB PO SCH (08:47)
[2025-01-24] MEDS: LOSARTAN 50 MG TABLET PO SCH (08:48)
[2025-01-24] MEDS: IBUPROFEN 400 MG TAB PO SCH (08:48)
[2025-01-24] MEDS ORDERED: DIVALPROEX 250 MG TAB PO SCH (09:10)
[2025-01-24] MEDS: DIVALPROEX SPRINKLE 125 MG CAP PO SCH (11:25)
[2025-01-24] MEDS: OLANZapine ORAL DISINTEGRATING TAB 5MG PO PRN (11:25)
[2025-01-24 16:52] VITALS: BP 113/62; TEMP 97.8; O2SAT 100
[2025-01-24] MEDS: HALOPERIDOL LACTATE 5 MG/ML VIAL IM ONE (22:00)
[2025-01-25 06:34] VITALS: BP 162/90; TEMP 97.8; O2SAT 95
[2025-01-25] MEDS: SUCRALFATE SUSP 1GM/10ML UD PO SCH (08:01)
[2025-01-25 15:13] VITALS: BP 117/74; TEMP 97.4; O2SAT 100
[2025-01-26 06:19] VITALS: BP 116/61; TEMP 97.6; O2SAT 98
[2025-01-26 08:22] VITALS: BP 139/88
[2025-01-26] MEDS: ONDANSETRON 4MG ORAL DISINTEGRATING TAB SL PRN (09:24)
[2025-01-26 12:19] VITALS: BP 150/92; O2SAT 97
[2025-01-26] MEDS ORDERED: ONDANSETRON 4MG ORAL DISINTEGRATING TAB SL PRN (12:25)
[2025-01-26 12:45] LABS: BASO # 0.1 10^3/uL (0.0-0.2); BASO % 0.4 % (0.0-1.0); EOS # 0.0 10^3/uL (0.0-0.5); EOS % 0.0 % (0.0-3.0); LYMPH # 2.1 10^3/uL (1.5-5.0); LYMPH % 11.1 % (24.0-44.0); MONO # 0.9 10^3/uL (0.0-0.8); MONO % 4.6 % (2.0-8.0); NEUTROPHILS # 15.6 10^3/uL (1.5-8.5); NEUTROPHILS % 83.4 % (36.0-66.0); PLATELET COUNT, AUTOMATED 353 10^3/uL (150-450)
[2025-01-26 13:10] LABS: CALCIUM LEVEL 10.3 MG/DL (8.5-10.1); CARBON DIOXIDE LEVEL 29 MMOL/L (20-31); CHLORIDE LEVEL 100 MMOL/L (98-107); CREATININE FOR GFR 0.68 MG/DL (0.55-1.30); GLOMERULAR FILTRATION RATE > 90.0 (>58); POTASSIUM SERUM 3.4 MMOL/L (3.5-5.1); SODIUM LEVEL 141 MMOL/L (136-145)
[2025-01-26 14:02] LABS: MAGNESIUM LEVEL 2.0 MG/DL (1.8-2.4)
[2025-01-26 16:50] VITALS: BP 200/140; TEMP 98.4; O2SAT 97
[2025-01-26 17:15] VITALS: BP 150/92
[2025-01-26] MEDS: **hydrALAZINE** 10 MG TAB PO ONE (17:15)
[2025-01-26] MEDS: SUCRALFATE 1 GM TAB PO SCH (17:19)
[2025-01-26] MEDS ORDERED: FAMOTIDINE 20 MG TAB PO SCH (21:00)
[2025-01-27] MEDS ORDERED: HYDR-3363 PO (16:57)
[2025-01-27] MEDS ORDERED: ABIL10TA9 PO (16:57)
[2025-01-27] MEDS ORDERED: POTA-136 PO (16:57)
[2025-01-27] MEDS ORDERED: DEPA500T2 PO (16:57)
== END 2025-01-26 17:58 | disposition other institution (70) | DRG 753 ==
LOC: M ED 16:43 → M ED INP 21:37 → M PSY 23:33
PROVIDERS: ADMIT Psychiatry & Neurology Neurology; ATTEND Psychiatry & Neurology Neurology
DX: F31.81 Bipolar II disorder (principal); E83.52 Hypercalcemia; R45.851 Suicidal ideations; R45.850 Homicidal ideations; R11.10 Vomiting, unspecified; I10 Essential (primary) hypertension; J45.909 Unspecified asthma, uncomplicated; R12 Heartburn; F17.290 Nicotine dependence, other tobacco product, uncomplicated; K22.4 Dyskinesia of esophagus; K21.9 Gastro-esophageal reflux disease without esophagitis; Z90.79 Acquired absence of other genital organ(s); Z62.810 Personal history of physical and sexual abuse in childhood; Z62.811 Personal history of psychological abuse in childhood; Z79.899 Other long term (current) drug therapy; Z88.1 Allergy status to other antibiotic agents; Z88.2 Allergy status to sulfonamides; Z88.8 Allergy status to other drugs, medicaments and biological substances; Z91.030 Bee allergy status; F60.3 Borderline personality disorder

== ENCOUNTER 2025-01-26 13:27 | Inpatient (IN) | payer OTHER ==
[~2025-01-26 13:27] MED LIST changes: +PREM0.6254 PO
[2025-01-26] MEDS ORDERED: ALBUTEROL 90 MCG/ACT 8 GM HFA INHALER INH PRN (16:15)
[2025-01-26 18:00] VITALS: BP 170/86; TEMP 99.1; O2SAT 99
[2025-01-26] MEDS: LR 1,000 ML IV ONE (18:29)
[2025-01-26] MEDS: ONDANSETRON 4MG/2ML VIAL IV PRN (18:34)
[2025-01-26] MEDS: FAMOTIDINE 20 MG TAB PO ONE (18:40)
[2025-01-26] MEDS: LR 1,000 ML IV SCH (19:40)
[2025-01-26 20:00] VITALS: BP 148/76; TEMP 97.5; O2SAT 96
[2025-01-26] MEDS: PANTOPRAZOLE 40MG VIAL IV SCH (20:34)
[2025-01-26] MEDS: SUCRALFATE 1 GM TAB PO SCH (21:25)
[2025-01-26] MEDS: CYCLOBENZAPRINE 10 MG TABLET PO PRN (21:56)
[2025-01-26] MEDS: QUEtiapine FUMARATE 50MG TAB PO PRN (21:56)
[2025-01-26] MEDS: KCL 10MEQ/100ML SWI (KRUN) 10 MEQ in IV 1 EA IV SCH (22:05)
[2025-01-26] MEDS: AMITRIPTYLINE 10 MG TABLET PO SCH (22:16)
[2025-01-26] MEDS: OLANZapine ORAL DISINTEGRATING TAB 5MG PO PRN (22:16)
[2025-01-27 05:20] VITALS: BP 140/86; TEMP 97.9; O2SAT 98
[2025-01-27 06:19] LABS: BASO # 0.1 10^3/uL (0.0-0.2); BASO % 0.4 % (0.0-1.0); EOS # 0.1 10^3/uL (0.0-0.5); EOS % 0.5 % (0.0-3.0); LYMPH # 5.8 10^3/uL (1.5-5.0); LYMPH % 46.1 % (24.0-44.0); MONO # 1.3 10^3/uL (0.0-0.8); MONO % 10.7 % (2.0-8.0); NEUTROPHILS # 5.3 10^3/uL (1.5-8.5); NEUTROPHILS % 42.1 % (36.0-66.0); PLATELET COUNT, AUTOMATED 326 10^3/uL (150-450)
[2025-01-27 06:38] LABS: CALCIUM LEVEL 9.7 MG/DL (8.5-10.1); CARBON DIOXIDE LEVEL 32 MMOL/L (20-31); CHLORIDE LEVEL 103 MMOL/L (98-107); CREATININE FOR GFR 0.72 MG/DL (0.55-1.30); GLOMERULAR FILTRATION RATE > 90.0 (>58); MAGNESIUM LEVEL 1.8 MG/DL (1.8-2.4); POTASSIUM SERUM 3.2 MMOL/L (3.5-5.1); SODIUM LEVEL 144 MMOL/L (136-145)
[2025-01-27] MEDS: KCL 10MEQ/100ML SWI (KRUN) 10 MEQ in IV 1 EA IV SCH (07:13)
[2025-01-27] MEDS: CETIRIZINE 10 MG TAB PO SCH (09:00)
[2025-01-27] MEDS: LOSARTAN 50 MG TABLET PO SCH (09:00)
[2025-01-27] MEDS: ACETAMINOPHEN *IV* 1,000 MG in IV 1 EA IV ONE (10:46)
[2025-01-27] MEDS ORDERED: LIDOCAINE 2% 100 MG/5 ML SDV (FOR ANES.) As Ordered ONE (11:40)
[2025-01-27 12:28] VITALS: BP 168/96; TEMP 97.6; O2SAT 95
[2025-01-27] MEDS: POTASSIUM CHLORIDE 10MEQ SR TABLET PO ONE (16:47)
[2025-01-27] MEDS ORDERED: DEPA500T2 PO (16:57)
[2025-01-27] MEDS ORDERED: ABIL10TA9 PO (16:57)
[2025-01-27] MEDS ORDERED: HYDR-3363 PO (16:57)
[2025-01-27] MEDS ORDERED: POTA-136 PO (16:57)
[2025-01-27] MEDS ORDERED: POTASSIUM CHLORIDE 10MEQ SR TABLET PO ONE (18:40)
[2025-01-27] MEDS ORDERED: DIVALPROEX 500 MG *ER* TAB PO SCH (21:00)
[2025-01-28] MEDS ORDERED: ENOXAPARIN 40 MG/0.4 ML SYRINGE (J1650 PER 10MG) SC SCH (09:00)
== END 2025-01-27 17:35 | disposition home or self-care (01) | DRG 249 ==
LOC: OBSVTOIN 18:03 → M MS4PR 18:03
PROVIDERS: ADMIT Student in an Organized Health Care Education/Training Program; ATTEND Student in an Organized Health Care Education/Training Program
PROC: 0DJ08ZZ Inspection of Upper Intestinal Tract, Via Natural or Artificial Opening Endoscopic (ICD-10-PCS; principal; 2025-01-27 14:30)
DX: R11.15 Cyclical vomiting syndrome unrelated to migraine (principal); E87.6 Hypokalemia; I10 Essential (primary) hypertension; J45.909 Unspecified asthma, uncomplicated; F12.90 Cannabis use, unspecified, uncomplicated; E83.52 Hypercalcemia; F31.9 Bipolar disorder, unspecified; K21.9 Gastro-esophageal reflux disease without esophagitis; F41.9 Anxiety disorder, unspecified; R45.851 Suicidal ideations; R45.850 Homicidal ideations; K22.4 Dyskinesia of esophagus; K44.9 Diaphragmatic hernia without obstruction or gangrene; D72.829 Elevated white blood cell count, unspecified; Z88.2 Allergy status to sulfonamides; Z88.8 Allergy status to other drugs, medicaments and biological substances; Z91.030 Bee allergy status; Z79.899 Other long term (current) drug therapy; F60.3 Borderline personality disorder